=== PATIENT | female | born 1970 | race Two or more races ===

== ENCOUNTER → 2025-03-13 | Outpatient (CLI) | payer BC, SELFPAY ==
--- NOTE | 2025-03-13 09:15 | XR_ITS ---
Examination: Screening digital mammography, bilateral Computer aided detection 3-D breast Tomosynthesis, bilateral Date and time of exam: March 13, 2025, 0859 hours Compared to mammograms dating to January 16, 2022 Indication: Screening Technique: Nonmagnified MLO, CC views of the breasts to been obtained, reconstructed from 3-D Tomosynthesis images. R2 computer aided detection program utilized for evaluation of suspicious masses and/or abnormal calcifications. 3-D Tomosynthesis images obtained. Findings: The breasts are heterogeneously dense, which may obscure small masses 12 mm nodule partially indistinct margins 12:00 position left breast Impression: BI-RADS Category 0: Incomplete: Need additional imaging evaluation Recommend follow-up spot tomographic views both millimeter nodule 12:00 position left breast as well as bilateral breast sonography to complete the workup.
== END | disposition home or self-care (01) ==
PROVIDERS: PCP Internal Medicine; Referring Provider Obstetrics & Gynecology; Visit Provider Obstetrics & Gynecology
DX: Z12.31 Encounter for screening mammogram for malignant neoplasm of breast (principal); N63.25 Unspecified lump in the left breast, overlapping quadrants
CPT/HCPCS: 77063; 77067

== ENCOUNTER → 2025-03-26 | Outpatient (CLI) | payer BC, SELFPAY ==
--- NOTE | 2025-03-26 09:00 | XR_ITS ---
Examination: Diagnostic digital mammography, unilateral, left Computer aided detection 3-D breast Tomosynthesis, unilateral Date and time of exam: March 26, 2025 0853 hours INDICATIONS: Mammogram 05/28/2024 12 mm nodule 12:00 position left breast Technique: Nonmagnified MLO, CC views of the left breast have been obtained, reconstructed from 3-D Tomosynthesis images. R2 computer aided detection program utilized for evaluation of suspicious masses and/or abnormal calcifications. 3-D Tomosynthesis images obtained. Findings: The breast is heterogeneously dense, which may obscure small masses Focal nodular asymmetry is confirmed in the 12:00 position left breast Impression: BI-RADS category 0: Incomplete: Need additional imaging evaluation Recommend left breast sonography follow-up
== END | disposition home or self-care (01) ==
LOC: CDIM 08:42
PROVIDERS: Referring Provider Obstetrics & Gynecology; Visit Provider Obstetrics & Gynecology
DX: R92.8 Other abnormal and inconclusive findings on diagnostic imaging of breast (principal)
CPT/HCPCS: 77061; 77065; G0279

== ENCOUNTER → 2025-04-09 | Outpatient (CLI) | payer BC, SELFPAY ==
--- NOTE | 2025-04-09 11:30 | XR_ITS ---
Examination: Pelvic ultrasound, transabdominal, complete Technique: Transabdominal ultrasound of the pelvis performed using grayscale imaging Date and time of exam: April 09, 2025 1131 hours INDICATIONS: Transvaginal sonogram August 01, 2024 vascular uterine fundal mass 7.8 cm FINDINGS: Uterus 10.7 cm Vascular uterine fundal mass 7.6 x 5.4 x 7.3 cm Ovaries obscured by bowel gas IMPRESSION: Large vascular uterine fundal mass 7.6 x 5.4 x 7.3 cm, differential would include uterine area of fibroid degeneration as well as malignant neoplasm of the uterus Recommend repeat MRI pelvis follow-up pre and postcontrast
== END | disposition home or self-care (01) ==
LOC: CDIM 11:11
PROVIDERS: PCP Internal Medicine; Referring Provider Obstetrics & Gynecology; Visit Provider Obstetrics & Gynecology
DX: R19.09 Other intra-abdominal and pelvic swelling, mass and lump (principal)
CPT/HCPCS: 76856

== ENCOUNTER → 2025-04-23 | Outpatient (CLI) | payer BC, SELFPAY ==
--- NOTE | 2025-04-23 15:30 | XR_ITS ---
Examination: Breast ultrasound complete, bilateral Date and time of exam: April 23, 2025 1529 hours INDICATIONS: Family history breast cancer, mammogram March 26, 2025 focal nodular asymmetry 12:00 position left breast Technique: Real-time grayscale ultrasonographic imaging bilateral breasts, including all 4 quadrants as well as nipple retroareolar and axillary regions. Findings: Sonographic images right breast No cystic or solid mass Sonographic images left breast 9:00 cyst 4 x 4 millimeter No solid nodules IMPRESSION: BI-RADS Category 2: Benign findings
== END | disposition home or self-care (01) ==
PROVIDERS: PCP Internal Medicine; Referring Provider Obstetrics & Gynecology; Visit Provider Obstetrics & Gynecology
DX: N63.20 Unspecified lump in the left breast, unspecified quadrant (principal); Z80.3 Family history of malignant neoplasm of breast
CPT/HCPCS: 76641

== ENCOUNTER → 2025-07-17 | Outpatient (CLI) | payer BC, SELFPAY ==
--- NOTE | 2025-07-17 13:10 | XR_ITS ---
EXAMINATION: MRI pelvis with intravenous contrast TECHNIQUE: Multiple axial sagittal and coronal MR images of the pelvis post intravenous administration 20 cc gadolinium INDICATIONS: History uterine fundal mass 7.6 x 5.4 x 7.3 cm on pelvic sonogram April 09, 2025 Date and time: July 17, 2025 1358 hours FINDINGS: Anteverted uterus The fundus is replaced by a mildly enhancing uterine mass, 6.5 x 5.4 x 7 cm Lower uterine segment and cervix are unremarkable Ovaries are normal in size No pelvic lymphadenopathy No free fluid in the pelvis Homogeneous marrow signal bones of the pelvis IMPRESSION: Findings most consistent with uterine fibroid degeneration 6.5 x 5.4 x 7.0 cm replacing the uterine fundus, recommend 6-month follow-up transvaginal pelvic sonography
== END | disposition home or self-care (01) ==
LOC: SMRI 12:50
PROVIDERS: PCP Internal Medicine; Referring Provider Obstetrics & Gynecology; Visit Provider Obstetrics & Gynecology
DX: D25.9 Leiomyoma of uterus, unspecified (principal)
CPT/HCPCS: 72196; A9577